=== PATIENT | male | born 1960 ===

== ENCOUNTER 2024-06-21 13:35 | Inpatient (IN) | payer MEDICARE, OTHER ==
[~2024-06-21] VITALS: Ht 177.8 cm; Wt 77.8 kg
[2024-06-21] MEDS ORDERED: Haloperidol 5 MG Tab PO PRN (15:10)
[2024-06-21] MEDS ORDERED: HydrOXYzine Pamoate 50 MG Cap PO PRN (15:10)
[2024-06-21] MEDS ORDERED: DiphenhydrAMINE HCl 50 MG/ML 1ML Vial IV PRN (15:15)
[2024-06-21] MEDS ORDERED: Haloperidol Lactate Inj. 5 MG/ML Injection IM PRN (15:15)
[2024-06-21] MEDS ORDERED: LORazepam 2 MG Tab PO PRN (15:15)
[2024-06-21] MEDS ORDERED: Aluminum Hydroxide 320MG/5ML 473 ML PO PRN (15:15)
[2024-06-21] MEDS ORDERED: FLU VACC TS2024-25(6MOS UP)/PF 45 MCG/0.5 ML SYRINGE IM SCH (15:15)
[2024-06-21] MEDS ORDERED: Acetaminophen 325 MG TABLET PO PRN (15:15)
[2024-06-21] MEDS ORDERED: Ibuprofen 600 MG Tab PO PRN (15:15)
[2024-06-21] MEDS ORDERED: DiphenhydrAMINE HCl 50 MG Cap PO PRN (15:15)
[2024-06-21] MEDS ORDERED: Ondansetron 4 MG SoluTab MM PRN (15:20)
[2024-06-21] MEDS ORDERED: Calcium Carbonate 500 MG Tab Chew PO PRN (15:20)
[2024-06-21] MEDS ORDERED: Melatonin 3 MG Tab PO PRN (15:20)
[2024-06-21] MEDS ORDERED: LORazepam 2 MG/ML 1ML Injection IM PRN (15:20)
[2024-06-21] MEDS ORDERED: OLANZapine ODT 10 MG Tab MM PRN (15:20)
[2024-06-21] MEDS ORDERED: TraZODone HCl 50 MG Tab PO PRN (15:20)
[2024-06-21] MEDS ORDERED: Polyethylene Glycol 3350 17 gm PO PRN (15:25)
[2024-06-21 15:45] VITALS: BP 118/74
[2024-06-21 16:00] VITALS: BP 118/74
[2024-06-21 16:25] VITALS: BP 118/74
[2024-06-21] MEDS ORDERED: ALBU90OI INH (16:54)
[2024-06-21] MEDS ORDERED: ABILIFY MYCITE15 M2 PO (16:56)
[2024-06-21] MEDS ORDERED: ASPI81CH PO (16:56)
[2024-06-21] MEDS ORDERED: CLOP75 PO (16:57)
[2024-06-21] MEDS ORDERED: Vitamin D1000 UNI1 PO (16:57)
[2024-06-21] MEDS ORDERED: B-12500 MC2 PO (16:58)
[2024-06-21] MEDS ORDERED: DULO30 PO ×2 (17:04→17:10)
[2024-06-21] MEDS ORDERED: CYCL10 PO (17:09)
[2024-06-21] MEDS ORDERED: JARDIANCE10 MG PO (17:11)
[2024-06-21] MEDS ORDERED: FAMO20 PO (17:12)
[2024-06-21] MEDS ORDERED: FERROUS GLUCON324 M7 PO (17:14)
[2024-06-21] MEDS ORDERED: FLUTICASONE PRO12 GM (17:17)
[2024-06-21] MEDS ORDERED: GABA300 PO (17:18)
[2024-06-21] MEDS ORDERED: GLIP5 PO (17:20)
[2024-06-21] MEDS ORDERED: LEVSOD137 (17:20)
[2024-06-21] MEDS ORDERED: LOSA25 PO (17:23)
[2024-06-21] MEDS ORDERED: MELO7.5 PO (17:24)
[2024-06-21] MEDS ORDERED: METF500 PO (17:26)
[2024-06-21] MEDS ORDERED: METO25ER PO (17:27)
[2024-06-21] MEDS ORDERED: FISH OIL 1,2001 EAC4 PO (17:28)
[2024-06-21] MEDS ORDERED: NITR.4SL SL (17:28)
--- NOTE | 2024-06-21 17:28 | NUR ---
ADMISSION NOTE: PT TRANSPORTED TO [facility] BY SECURED TRANSPORT FROM [place], [place]. PT WAS COOPERATIVE AND CALM DURING INTAKE PROCESS. DURING TWO RN SKIN ASSESSMENT A FEW SCABBED OVER LESIONS NOTED TO BILATERAL ANKLES, PT STATES FROM NEUROPATHY. PT DRESSED IN U SCRUBS. HE WAS INFORMATIVE AND GOOD HISTORIAN DURING ASSESSEMENTS. PT ORIENTED TO ROOM, STAFF, AND UNIT. PROVIDED PT WITH TOILETRIES AND SHOWN TO [employer] FOR DINNER MEAL.
[2024-06-21] MEDS ORDERED: QUET25 PO (17:40)
[2024-06-21] MEDS ORDERED: Crestor40 MG PO (17:42)
[2024-06-21] MEDS ORDERED: Nitroglycerin 0.4 MG SUBL SL PRN (18:05)
[2024-06-21] MEDS ORDERED: Cyclobenzaprine HCl 10 MG Tab PO PRN (18:10)
[2024-06-21] MEDS ORDERED: Albuterol HFA200 ACT/6.7 GM INH INH PRN (18:25)
[2024-06-21] MEDS ORDERED: Mometasone Furoate Inhaler 220 mcg 14 ACT INH SCH (18:30)
[2024-06-21] MEDS ORDERED: Phenylephrine 0.5% Nasal Spray/Drops 15 ML PRN ×2 (19:45→19:50)
[2024-06-21 20:19] VITALS: BP 170/86
[2024-06-21] MEDS ORDERED: QUEtiapine Fumarate 25 MG Tab PO SCH (21:00)
[2024-06-21] MEDS ORDERED: Famotidine 20 MG Tab PO SCH (21:00)
[2024-06-21] MEDS ORDERED: DULoxetine HCL 30 MG Cap DR PO SCH (21:00)
[2024-06-21] MEDS ORDERED: Gabapentin 300 MG Cap PO SCH (21:00)
--- NOTE | 2024-06-22 04:05 | NUR ---
SHIFT SUMMERY PATIENT AWAKE AND RESTING IN BED AT BEGINNING OF SHIFT. PARTICIPATING IN SNACK THEN BACK TO BED. WHEN ASKED ABOUT SI PATIENT VERBALIZED "I TRY TO KEEP IT OUT OF MY MIND" DENIES HI, AT TIMES HEARING MUSIC AND HIS NAME CALLED. NO VISUAL HALLUCINATIONS. RATING CHRONIC NEUROPATHY PAIN TO HANDS, AND BOTH LOWER EXTREMITIES. GIVEN PRN FLEXERIL AND MELATONIN FOR PAIN AND SLEEP. PATIENT APPEARS TO BE SLEEPING WELL WITH REGULAR UNLABORED RESP. CONTINUE Q15MIN SAFETY CHECKS.
--- NOTE | 2024-06-22 05:59 | NUR ---
PATIENT AWAKE C/O PAIN "ALL OVER" MOSTLY TO HANDS, FEET AND KNEES. VERBALIZED HANDS AND FEET FEELING STIFF WHICH IS NORMAL FOR HIM IN THE MORNING. REQUESTING TYLENOL. PATIENT REMOVED SCRUBS DURING THE NIGHT. PATIENT INFORMED THAT THIS IS A [facility] FACILITY AND THAT HE NEEDS TO AT LEAST WEAR HIS BOTTOM SCRUBS. PATIENT VERBALIZED UNDERSTANDING
[2024-06-22] MEDS ORDERED: Levothyroxine Sodium 0.137 MG Tab PO SCH (06:00)
[2024-06-22] MEDS ORDERED: MetFORMIN HCl 500 mg PO SCH (08:00)
[2024-06-22] MEDS ORDERED: GlipiZIDE 5 MG Tab PO SCH (08:00)
[2024-06-22 08:07] VITALS: BP 141/82
[2024-06-22] MEDS ORDERED: Aspirin 81 MG Chew PO SCH (09:00)
[2024-06-22] MEDS ORDERED: Metoprolol Succinate 25 MG TABCR PO SCH (09:00)
[2024-06-22] MEDS ORDERED: Ferrous Gluconate 325 MG Tablet PO SCH (09:00)
[2024-06-22] MEDS ORDERED: Meloxicam 7.5 MG Tab PO SCH (09:00)
[2024-06-22] MEDS ORDERED: ARIPiprazole 5 MG Tab PO SCH (09:00)
[2024-06-22] MEDS ORDERED: Rosuvastatin Calcium 10 MG Tab PO SCH (09:00)
[2024-06-22] MEDS ORDERED: Clopidogrel Bisulfate 75 MG Tab PO SCH (09:00)
[2024-06-22] MEDS ORDERED: Cholecalciferol 1000 Unit Tablet (=25MCG) PO SCH (09:00)
[2024-06-22] MEDS ORDERED: DULoxetine HCL 30 MG Cap DR PO SCH (09:00)
[2024-06-22] MEDS ORDERED: Losartan Potassium 25 MG Tab PO SCH (09:00)
[2024-06-22] MEDS ORDERED: Cyanocobalamin 500 MCG Tab PO SCH (09:00)
[2024-06-22] MEDS ORDERED: Empagliflozin 10 MG TAB PO SCH (09:00)
[2024-06-22] MEDS ORDERED: Omega-3 Acid Ethyl Esters 1,000 MG CAP PO SCH (09:00)
[2024-06-22] MEDS ORDERED: Multivitamins 1 Tab PO SCH (09:00)
--- NOTE | 2024-06-22 14:39 | NUR ---
PT STAARTED OFF ON A SLOW PACE THIS MORNING. A/OX4. DENIES SI AND HI, AVH. PT IS SAD,BUT IS IN A BETTER MOOD THIS AFTERNOON. THIS MORNING STARTED OFF WITH HIS NEUROPATHY PAIN. AFTER MEDICATIOMS GIVEN AND WORKING HE IS DOING BETTER. PT TALKS ABOUT HIS STRUGGLES IN THE PAST. HE IS CURRENTLY IN OT IN [facility] FOR [facility]AP[facility]. GIVEN A THERAPY BALL FOR HIM TO WORK WITH HIS HANDS AND HE SEEMS TO BE ENJOYING IT. HAS RESTED THROUGH THE DAY AND PARTICIPATED IN GROUPS TODAY. WILL CONTINUE TO MONITOR.
--- NOTE | 2024-06-22 17:15 | NUR ---
SHIFT SUMMARY : PT A/O X4. DENIES SI, HI AND AVH. HAD A GOOD DAY. MEDICATIONS EFFECTIVE FOR NEURPATHY PAIN. HAS PARTICIPATED IN ALL GROUP ACTIVITIES. INTERACTED WELL WT PEERS IN THE [place]. WILL CONTINUE TO MONITOR.
[2024-06-22 22:04] VITALS: BP 153/114
[2024-06-23 04:55] VITALS: BP 145/73
--- NOTE | 2024-06-23 04:58 | NUR ---
SHIFT SUMMARY PATIENT ACTIVE IN [place], VISITING WITH STAFF AND PEERS. DENIES SI, HI, AVH. CONTINUES TO HAVE DIFFICULTY WITH CHRONIC NEUROPATHY PAIN TO HANDS AND LEGS, AT TIMES GENERALIZED BODY ACHING. DISCUSSED WITH PATIENT TO ATTEMPT TO SEE A CHRONIC PAIN SPECIALIST AFTER D/C. PT SLEEPING OFF AND ON T/O NIGHT AWAKENING EASILY TO HIS ROOMMATE RESTLESS IN THE ROOM. 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 VSS, ABLE TO RELAX AND TURN TO HIS SIDE AFTER A FEW MIN. TYLENOL GIVEN FOR GENERALIZED PAIN, WITH PLAN TO TAKE IBUPROFEN WITH BREAKFAST THIS MORNING. CONTINUE TO MONITOR Q15MIN.
[2024-06-23 08:09] VITALS: BP 147/81
--- NOTE | 2024-06-23 17:21 | NUR ---
DISCHARGE NOTE: PT A/O X4. DISCHAGED TO HOME VIA [facility] AT 1702. PT TO GO TO [facility], [place]. GIVEN DISCHARGE INSTRUCTIONS, WENT OVER MEDICATION CONTINUED TO FOLLOW AT HOME. APPT MADE FOR PCP FOLLOW UP. DECLINED OFFER OF NICOTINE CESSATION. PT IS VERY HEALTH CONSCIOUS AND DOES NOT SMOKE. BELONGINGS RETURNED ON TIME OF DISCHARGE. AMBULATED OUT WITH [employer] GAIT.
== END 2024-06-23 17:02 | disposition home or self-care (01) | DRG 885 ==
LOC: BHU 13:35
PROVIDERS: ADMIT Psychiatry & Neurology Psychiatry
DX: F33.9 Major depressive disorder, recurrent, unspecified (principal); R45.851 Suicidal ideations; Z91.018 Allergy to other foods; Z79.899 Other long term (current) drug therapy; Z79.51 Long term (current) use of inhaled steroids; Z79.82 Long term (current) use of aspirin; Z79.890 Hormone replacement therapy; Z79.84 Long term (current) use of oral hypoglycemic drugs
CPT/HCPCS: A9270